=== PATIENT | female | born 1955 | race Caucasian/White ===

== ENCOUNTER → 2016-07-31 | Outpatient (CLI) | payer OTHER | END | disposition home or self-care (01) | LOC: C.LABPVFM 14:59 | PROVIDERS: ATTEND Nurse Practitioner Family | DX: R39.9 Unspecified symptoms and signs involving the genitourinary system (principal) ==

== ENCOUNTER → 2017-10-14 | Outpatient (CLI) | payer OTHER ==
[2017-10-14 13:34] LABS: HEMOGLOBIN 15.9 g/dL (12.0-16.0); MEAN CELL VOLUME 90.4 fL (80-100); MEAN CORPUSCULAR HEMOGLOBIN 30.6 pg (25-34); MEAN CORPUSCULAR HGB CONC 33.8 g/dl (32-36); MEAN PLATELET VOLUME 10.3 fL (7.4-10.4); PLATELET COUNT 185 K/uL (130-400); RED CELL DISTRIBUTION WIDTH CV 12.9 % (11.5-14.5); RED CELL DISTRIBUTION WIDTH SD 42.3 fL (36.4-46.3); WHITE BLOOD COUNT 5.96 K/uL (4.8-10.8)
[2017-10-14 14:37] LABS: ALBUMIN 3.4 gm/dl (3.4-5.0); ALT/SGPT 32 U/L (12-78); AST/SGOT 31 U/L (15-37); BLOOD UREA NITROGEN 21 mg/dl (7-18); CALCIUM 8.9 mg/dl (8.5-10.1); CARBON DIOXIDE 28 mmol/L (21-32); CHOLESTEROL 186 mg/dl (0-200); GLUCOSE 88 mg/dl (70-99); POTASSIUM 4.2 mmol/L (3.5-5.1); SODIUM 140 mmol/L (136-145)
[2017-10-14 14:39] LABS: ALKALINE PHOSPHATASE 134 U/L (45-117); LDL CHOLESTEROL CALCULATED 105 mg/dl; TOTAL PROTEIN 7.3 gm/dl (6.4-8.2)
== END | disposition home or self-care (01) ==
LOC: C.LABPVFM 08:46
PROVIDERS: ATTEND Nurse Practitioner Family
DX: E78.5 Hyperlipidemia, unspecified (principal); I10 Essential (primary) hypertension; K92.1 Melena

== ENCOUNTER → 2017-12-03 | Outpatient (CLI) | payer OTHER ==
--- NOTE | 2017-12-06 15:09 | MAMMOGRAPHY REPORT ---
BILATERAL DIGITAL SCREENING MAMMOGRAM TOMOSYNTHESIS WITH CAD: 12/03/2017 CLINICAL HISTORY: Routine screening. Patient has no complaints. TECHNIQUE: Breast tomosynthesis in addition to standard 2D mammography was performed. Current study was also evaluated with a Computer Aided Detection (CAD) system. COMPARISON: Comparison is made to exam dated: 05/27/2010 mammogram - [facility]. BREAST COMPOSITION: There are scattered areas of fibroglandular density in both breasts. FINDINGS: No suspicious masses, calcifications, or areas of architectural distortion are noted in ei ther breast. There has been no significant interval change compared to prior exams. Left breast nodu larity is again noted. IMPRESSION: ACR BI-RADS CATEGORY 2: BENIGN There is no mammographic evidence of malignancy. A 1 year screening mammogram is recommended. The pa tient will receive written notification of the results. Approximately 10% of breast cancers are not detected with mammography. A negative mammographic report should not delay biopsy if a clinically suggestive mass is present. Magalis Frederick M.D. ah/:12/03/2017 16:11:22 Shop Superintendent: Claire ALVARES(R)(M), [facility] letter sent: Normal 1/2 BI-RADS Code: ACR BI-RADS Category 2: Benign
== END | disposition home or self-care (01) ==
LOC: C.MAMM 13:36
PROVIDERS: ATTEND Nurse Practitioner Family
DX: Z12.31 Encounter for screening mammogram for malignant neoplasm of breast (principal)

== ENCOUNTER 2022-11-07 01:00 | Inpatient (IN) ==
[2022-11-07] MEDS ORDERED: ACETAMINOPHEN 500 MG TAB PO STA (01:17)
[2022-11-07] MEDS ORDERED: cefTRIAXone SODIUM 2,000 MG/70 ML BAG IV STA (01:20)
[2022-11-07] MEDS ORDERED: SODIUM CHLORIDE 0.9% 1000ML 1,000 ML IV SCH (01:30)
--- NOTE | 2022-11-07 01:39 | Emergency Department Note ---
History of Present Illness General Chief complaint: Weakness Time Seen by Provider: 11/07/22 01:10 History of Present Illness 67-year-old female presents emergency department with complaint of weakness. Patient was seen earlier in the day for weakness in the low pulse ox. Patient had an extensive work-up including a CT angio of the chest which was negative for PE. And full lab work-up. Patient returned home and states that she had increased weakness and a fever at home. Patient denies any specific complaints denies chest pain shortness of breath nausea vomiting urinary symptoms back pain diarrhea. There are no other complaints from the patient she is actually very poor historian as to her presentation. However she was here earlier was sent in for low pulse oximetry and had an extensive work-up at that time Home Medications Medication Instructions Recorded Confirmed Type calcium carbonate 600 mg-vitamin 1 cap PO QPM 12/25/18 11/07/22 History D3 5 mcg (200 unit) capsule (Calcium 600 + D(3)) cyanocobalamin (vitamin B-12) 5,000 mcg sublingual QAM 09/05/19 11/07/22 History 5,000 mcg sublingual tablet peg 400-propylene glycol (PF) 0.4 1 drp ophthalmic (eye) BID 09/27/20 11/07/22 History %-0.3 % eye drops in a dropperette (Systane (PF)) simvastatin 40 mg tablet 40 mg PO QPM #90 tabs 09/07/22 11/07/22 Rx hydrochlorothiazide 12.5 mg tablet 12.5 mg PO DAILY #30 tabs 10/30/22 11/07/22 Rx Lactobacills gasseri-Bifidobac 1 cap PO DAILY 11/07/22 11/07/22 History bifidum,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 capsule triamcinolone acetonide 0.1 % 1 applic topical DAILY PRN Skin 11/07/22 11/07/22 History topical cream Irritation Allergies Allergy/AdvReac Type Severity Reaction Status Date / Time solifenacin [From Ves[facility]are] AdvReac Intermediate UPSET Verified 11/07/22 02:07 STOMACH Sulfa (Sulfonamide AdvReac Unknown Unknown Verified 11/07/22 02:07 Antibiotics) Past Med/Surg History Medical History Fluid retention in legs History of anxiety History of depression Hyperlipemia Obesity Osteoarthritis of left knee Physical deconditioning Psoriasis Snores Surgical History H/O tooth extraction History of cataract surgery LEFT History of lumpectomy of right breast benign History of open reduction and internal fixation (ORIF) procedure LLE Family History Sister Colorectal cancer Grandmother Colorectal cancer Mother Diabetes Other No family history of adverse response to anesthesia Denies family history of Ovarian cancer Prostate cancer Myocardial infarction Breast cancer Hypertension Social History Smoking Status: Never smoker Second Hand Exposure: No (as a child); Hx Alcohol Use: No Hx Substance Use: No Preferred Language: Turkish Communication Ability: Effective Visual Impairment: Limited Hearing Ability: Normal Despatching And Receiving Clerk Required: No Beliefs That Will Affect Care: None marital status: Current Living Situation: Spouse current occupational status: retired How many Children do You have: 6 Feels Safe at Home: Yes Childhood Exposure to Second-Hand Smoke: Yes caffeine: Yes (soda ) during the past year weight has: remained stable Dental Care, Regularly: No Physical Activity Frequency: Daily Seatbelt Use: always Sunscreen Use: No Assistive Devices: Denture - Upper and Glasses Review of Systems A total of 10 systems reviewed and were otherwise negative Constitutional: + fever and + weakness Physical Exam Vital Signs Vital Signs - 24 hr 11/07/22 01:03 11/07/22 01:08 11/07/22 01:36 Temperature 39.6 C H Temperature Source Oral Pulse Rate 110 H 113 H Respiratory Rate 14 Respiratory Effort / Characteristics Non-Labored Spontaneous Respiratory Depth Normal Respiratory Pattern Regular Blood Pressure 177/100 H Blood Pressure Mean 125 Pulse Oximetry 88 L 98 Oxygen Delivery Method Room Air Nasal Cannula Oxygen Flow Rate 4 Sepsis Recent Fever Within 48 Hours Yes Sepsis New/Unexplained Change in Mental Status N/A Sepsis Action Taken by Nursing Physician Notified 11/07/22 01:42 11/07/22 02:08 11/07/22 02:30 Temperature Temperature Source Pulse Rate 113 H 118 H 105 H Respiratory Rate 24 28 H 24 Respiratory Effort / Characteristics Respiratory Depth Respiratory Pattern Blood Pressure 193/98 H 198/99 H 171/93 H Blood Pressure Mean 129 132 119 Pulse Oximetry 99 100 97 Oxygen Delivery Method Nasal Cannula Nasal Cannula Oxygen Flow Rate 4 4 Sepsis Recent Fever Within 48 Hours Sepsis New/Unexplained Change in Mental Status Sepsis Action Taken by Nursing GENERAL: Patient is awake alert in no acute distress patient is resting comfortably and showing no signs of anxiety EYES: The conjunctivae are clear. The pupils are round and reactive. EARS, NOSE, MOUTH AND THROAT: The nose is without any evidence of any deformity. Mucous membranes are moist. Tongue is midline. NECK: The neck is nontender and supple. RESPIRATORY: Normal respiratory effort is noted there is no evidence of wheezing rhonchi or rales CARDIOVASCULAR: Tachycardic rhythm noted there no murmurs rubs or gallops normal S1 normal S2. GASTROINTESTINAL: The abdomen is soft. Abdomen is nontender. BACK: No midline tenderness or or step-off noted range of motion in flexion extension as well as rotation no signs of muscle spasm noted MUSCULOSKELETAL/EXTREMITIES: There is no evidence of gross deformity full range of motion is noted in the hips and shoulders. Bilateral lower extremity edema SKIN: There is no obvious evidence of any rash. There are no petechiae, pallor or cyanosis noted. NEUROLOGIC: Patient is awake alert and oriented x3 strength is symmetric Psych normal affect Course Consultations Consultation #1: Case d/w Dr Celestin for admit Time: 02:44 Administered Medications Discontinued Medications Acetaminophen (Acetaminophen 500 Mg Tab) 1,000 mg PO NOW STA Stop: 11/07/22 01:18 Last Admin: 11/07/22 01:55 Dose: 1,000 mg Documented By: KML Sodium Chloride (Nss 1000ml) 1,000 mls @ 999 mls/hr IV .Q1H1M DERRICK Stop: 11/07/22 02:30 Last Admin: 11/07/22 01:55 Dose: 999 mls/hr Documented By: KMWard Ceftriaxone Sodium (Rocephin) 2,000 mg in 70 mls @ 140 mls/hr IV NOW STA Stop: 11/07/22 01:49 Last Admin: 11/07/22 02:01 Dose: 140 mls/hr Documented By: LEANDRO Medical Decision Making Medical Records Attestation: I reviewed the patient's medical records. Home Medications Current Medication List: was personally reviewed by me Laboratory Data Attestation: I reviewed the patient's lab results. 11/07/22 01:51 11/07/22 01:51 Lab Results 11/07/22 11/07/22 11/07/22 Range/Units 01:30 01:40 01:51 Sodium 132 L (136-145) mmol/L Potassium 4.1 (3.5-5.1) mmol/L Chloride 92 L (98-107) mmol/L Carbon Dioxide 29 (21-32) mmol/L Anion Gap 11 (3-11) BUN 26 H (6-23) mg/dl Creatinine 1.08 (0.6-1.2) mg/dl Est Cr Clr Drug Dosing 51.9 ml/min Est GFR ( Amer) 61.5 ml/min Est GFR (Non-Af Amer) 53.1 ml/min BUN/Creatinine Ratio 24.1 H (10-20) Glucose 143 H (70-99(Fasting)) mg/dl Lactate (0.4-2.0) mmol/L Calcium 9.2 (8.6-10.3) mg/dl Magnesium 1.9 (1.7-2.4) mg/dl Total Bilirubin 1.1 H (0.2-1.0) mg/dl Direct Bilirubin 0.2 (0-0.2) mg/dl AST 74 H (13-39) U/L ALT 39 (7-52) U/L Alkaline Phosphatase 101 (34-104) U/L Total Protein 7.2 (6.0-8.3) gm/dl Albumin 4.0 (3.4-5.0) gm/dl Urine Color Yellow Urine Appearance Clear (Clear) Urine pH 6.0 (4.5-7.5) Ur Specific [place] 1.020 (1.000-1.030) Urine Protein 2+ H (Negative) Urine Glucose (UA) Negative (Negative) Urine Ketones Trace H (Negative) Urine Blood 2+ H (Negative) Urine Nitrite Negative (Negative) Urine Bilirubin Negative (Negative) Urine Urobilinogen Negative (Negative) Ur Leukocyte Esterase Negative (Negative) Urine WBC (Auto) [employer] Urine RBC (Auto) [employer] U Hyaline Cast (Auto) [employer] U Epithel Cells (Auto) [employer] Urine Bacteria (Auto) [employer] SARS-CoV-2, RNA, NAAT NEGATIVE (NEGATIVE) 11/07/22 Range/Units 01:51 Sodium (136-145) mmol/L Potassium (3.5-5.1) mmol/L Chloride (98-107) mmol/L Carbon Dioxide (21-32) mmol/L Anion Gap (3-11) BUN (6-23) mg/dl Creatinine (0.6-1.2) mg/dl Est Cr Clr Drug Dosing ml/min Est GFR ( Amer) ml/min Est GFR (Non-Af Amer) ml/min BUN/Creatinine Ratio (10-20) Glucose (70-99(Fasting)) mg/dl Lactate 1.6 (0.4-2.0) mmol/L Calcium (8.6-10.3) mg/dl Magnesium (1.7-2.4) mg/dl Total Bilirubin (0.2-1.0) mg/dl Direct Bilirubin (0-0.2) mg/dl AST (13-39) U/L ALT (7-52) U/L Alkaline Phosphatase (34-104) U/L Total Protein (6.0-8.3) gm/dl Albumin (3.4-5.0) gm/dl Urine Color Urine Appearance (Clear) Urine pH (4.5-7.5) Ur Specific [place] (1.000-1.030) Urine Protein (Negative) Urine Glucose (UA) (Negative) Urine Ketones (Negative) Urine Blood (Negative) Urine Nitrite (Negative) Urine Bilirubin (Negative) Urine Urobilinogen (Negative) Ur Leukocyte Esterase (Negative) Urine WBC (Auto) Urine RBC (Auto) U Hyaline Cast (Auto) U Epithel Cells (Auto) Urine Bacteria (Auto) SARS-CoV-2, RNA, NAAT (NEGATIVE) Imaging Data Attestation: I personally reviewed and interpreted this imaging study as follows: ECG Data Attestation: I personally reviewed and interpreted this ECG as follows: Additional Comments: EKG interpreted by me sinus tachycardia rate of 114 normal intervals normal axis no obvious ST segment elevation or depression Telemetry was ordered by me, interpreted as sinus tachycardia rate of 112 MDM Narrative Medical decision making differential diagnosis includes sepsis, urinary tract infection, pneumonia, dehydration, deconditioning Plan is to check sepsis labs, give IV fluids, Tylenol, Rocephin External medical records were reviewed by me Patient's prior presentation from today was reviewed by me there may be an early urinary tract infection however it appeared to be contaminated Impression & Plan Sepsis, Weakness Discharge Plan Visit Data Chief Complaint: Weakness ED Provider: Rizwan Boyce Discharge Problem: Sepsis, Weakness Patient Disposition: Admitted As Inpatient Forms Stand Alone Forms: [facility] Prescriptions Prescriptions: No Action hydrochlorothiazide 12.5 mg tablet 12.5 mg PO DAILY Qty: 30 2RF Calcium 600 + D(3) 600 mg calcium- 200 unit capsule 1 cap PO QPM cyanocobalamin (vitamin B-12) 5,000 mcg tablet, sublingual 5,000 mcg SL QAM simvastatin 40 mg tablet 40 mg PO QPM Qty: 90 3RF Systane (PF) 0.4-0.3 % Dropperette 1 drp OPHTHALMIC (EYE) BID [employer] 1.5 billion cell Capsule 1 cap PO DAILY triamcinolone acetonide 0.1 % cream 1 applic TOP DAILY PRN (Reason: Skin Irritation) Referrals Referrals: Angelica Bartlett CRNP [Primary Care Provider] -
[2022-11-07 02:37] LABS: BUN Creatinine Ratio 24.1 (10-20); Bilirubin Direct 0.2 mg/dl (0-0.2); Bilirubin,Total 1.1 mg/dl (0.2-1.0); Calcium 9.2 mg/dl (8.6-10.3); Creatinine Clr Calc Pharmacy 51.9 ml/min; Est GFR (African American) 61.5 ml/min; Est GFR (Non-African American) 53.1 ml/min; Magnesium 1.9 mg/dl (1.7-2.4); Potassium 4.1 mmol/L (3.5-5.1); Total Protein 7.2 gm/dl (6.0-8.3)
[2022-11-07 02:44] LABS: Troponin I High Sensitivity 23.3 pg/ml (0-14)
[2022-11-07 02:57] LABS: Basophils % (auto) 0.3 %; Immature Granulocytes % (auto) 0.3 %; Lymphocytes % (auto) 12.8 %; Monocytes % (auto) 3.3 %; Neutrophils % (auto) 83.3 %
[2022-11-07 02:58] LABS: Basophils # (auto) 0.01 K/uL (0-0.2); Hematocrit (blood only) 45.8 % (37.0-47.0); Hemoglobin 16.3 g/dl (12.0-16.0); Immature Granulocytes # (auto) 0.01 K/uL (0.01-0.20); Lymphocytes # (auto) 0.46 K/uL (1.2-3.4); Mean Corpuscular Hgb Conc 35.6 g/dL (32.0-36.0); Mean Corpuscular Volume 87.2 fL (80.0-100.0); Mean Platelet Volume 11.7 fL (9.4-12.4); Monocytes # (auto) 0.12 K/uL (0.11-0.59); Platelet Count 43 K/uL (130-400); Platelet Estimate Decreased (Normal); RDW Standard Deviation 38.6 fL (36.4-46.3); Red Blood Count 5.25 M/uL (4.20-5.40)
--- NOTE | 2022-11-07 03:15 | History & Physical Report ---
Date of Service November 07, 2022 Assessment & Plan (1) Sepsis: Plan: 67-year-old female presenting with fatigue, diffuse generalized weakness, fever Tm=39.6, tachycardia, hypoxia. possible urinary source. CT performed during ER visit with no consolidation. Respiratory bio fire panel unremarkable. Patient with leukopenia WBC = 3.6 with lymphopenia lymphocytes = 0.46 as well as thrombocytopenia platelets = 43. Also with hyponatremia sodium = 132 and mild elevation of AST = 74 and T. bili = 1.1. Troponin is also mildly elevated 23.3. Elevation of procalcitonin = 1.14 which is increased from previous ER visit (0.63). Question tickborne illness given laboratory findings as above. [place] She denies any tick bites but they have dogs that frequently have ticks. - Admit to PCU Follow cultures Check anaplasmosis and babesiosis smear and DNA PCR Continue IV fluids LR at 125 mL/h x 2 L Empiric doxycycline 100 mg IV twice daily Empiric Unasyn 3 g IV every 6 Tylenol as needed Zofran as needed If no further source identified consider left knee. She has been complaining of pain in this area. There was no excess warmth, erythema or swelling during my exam. (2) Hypertension: Plan: Patient recently started on hydrochlorothiazide Will hold this medication given her hyponatremia (3) Dyslipidemia: Plan: chronic. Stable. Continue simvastatin 40 mg p.o. every afternoon F/E/NLR at 125 mL/h x 2 L, electrolytes within normal limits, regular diet as tolerated ProphylaxisSCDs, Low risk for DVT. Thrombocytopenia with platelets = 73 Codefull per discussion with patient. Family at bedside Dispositionadmit to PCU for continued work-up and treatment of sepsis History of Present Illness Chief Complaint: Weakness, fatigue, fever Primary Care Provider: GISELA Melendez Janie Cárdenas is a 67-year-old female with history of anxiety/depression, hyperlipidemia and psoriasis presenting with complaint of fever, fatigue and generalized weakness. Patient symptoms began approximately 4 days ago. Her family at bedside reports that she has been less interactive and alert than usual. She was seen in the ER on 11/06/2022 with these complaints. She was initially found to be febrile at 38.1, tachycardic 116 bpm with saturation of 93% on room air. Her temperature was checked again without administration of antipyretics was found to be normal. Patient had a chest x-ray that was unremarkable As well as a CTA-Chest and venous Doppler study that were negative for VTE or pneumonia.. She also had a chemistry panel and CBC that were within normal limits aside from thrombocytopenia with platelets of 73. Patient also had a respiratory bio fire panel and Lyme testing which were both negative. Patient was ultimately discharged home. While at home, her weakness persisted. She slid out of bed sometime during the night and was unable to get up. Her family found her on the floor and called EMS. Patient febrile upon arrival Tmax = 39.6, tachycardic 113 bpm, regular. Hypertensive 193/98. Hypoxic to 88% on room air. Supplemental oxygen was placed by nasal cannula. Presently saturating 97% on 4 L. Patient complaining of headache, fatigue and diffuse generalized weakness as well as feeling warm. Patient has had no appetite and very little oral intake over the last 2 days. She denies chest pain, cough, shortness of breath. Denies abdominal pain, nausea, vomiting, diarrhea. She does have fairly frequent constipation. She denies dysuria but does report the sensation of incomplete bladder emptying. Patient with psoriasis but denies change in her skin lesions or painful lesions. No additional complaints at this time ER course: Acetaminophen Ceftriaxone Normal saline x1 L Allergies Allergy/AdvReac Type Severity Reaction Status Date / Time solifenacin [From [facility]] AdvReac Intermediate UPSET Verified 11/07/22 02:07 STOMACH Sulfa (Sulfonamide AdvReac Unknown Unknown Verified 11/07/22 02:07 Antibiotics) Home Medications Medication Instructions Recorded Confirmed Type calcium carbonate 600 mg-vitamin 1 cap PO QPM 12/25/18 11/07/22 History D3 5 mcg (200 unit) capsule (Calcium 600 + D(3)) cyanocobalamin (vitamin B-12) 5,000 mcg sublingual QAM 09/05/19 11/07/22 History 5,000 mcg sublingual tablet peg 400-propylene glycol (PF) 0.4 1 drp ophthalmic (eye) BID 09/27/20 11/07/22 History %-0.3 % eye drops in a dropperette (Systane (PF)) simvastatin 40 mg tablet 40 mg PO QPM #90 tabs 09/07/22 11/07/22 Rx hydrochlorothiazide 12.5 mg tablet 12.5 mg PO DAILY #30 tabs 10/30/22 11/07/22 Rx Lactobacills gasseri-Bifidobac 1 cap PO DAILY 11/07/22 11/07/22 History bifidum,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 capsule triamcinolone acetonide 0.1 % 1 applic topical DAILY PRN Skin 11/07/22 11/07/22 History topical cream Irritation Past Med/Surg History Medical History Fluid retention in legs History of anxiety History of depression Hyperlipemia Obesity Osteoarthritis of left knee Physical deconditioning Psoriasis Snores Surgical History H/O tooth extraction History of cataract surgery LEFT History of lumpectomy of right breast benign History of open reduction and internal fixation (ORIF) procedure LLE Family History Sister Colorectal cancer Grandmother Colorectal cancer Mother Diabetes Other No family history of adverse response to anesthesia Denies family history of Ovarian cancer Prostate cancer Myocardial infarction Breast cancer Hypertension Social History Smoking Status: Never smoker Second Hand Exposure: No (as a child); Hx Alcohol Use: No Hx Substance Use: No Preferred Language: Portuguese Communication Ability: Effective Visual Impairment: Limited Hearing Ability: Normal Pollution Control Chemist Required: No Beliefs That Will Affect Care: None marital status: Current Living Situation: Spouse current occupational status: retired How many Children do You have: 6 Feels Safe at Home: Yes Childhood Exposure to Second-Hand Smoke: Yes caffeine: Yes (soda ) during the past year weight has: remained stable Dental Care, Regularly: No Physical Activity Frequency: Daily Seatbelt Use: always Sunscreen Use: No Assistive Devices: Denture - Upper and Glasses Review of Systems Review of Systems: All systems reviewed & are unremarkable except as noted in HPI & below Physical Exam Physical Exam: General: patient Ill in appearance, opens eyes to voice and follows commands. Answers questions appropriately Skin: Warm, dry, several psoriatic patches noted on extensor surfaces with no active bleeding or evidence of secondary infection. HEENT: NC/AT, PERRL, EOMI, anicteric sclera, conjunctiva without injection, external ear normal to inspection and nontender, nares patent, Dry mucus membranes, dentures in place, no oropharyngeal lesions, neck supple, trachea midline, no LAD, no thyromegaly, no JVD, no facial tenderness Heart: +S1/S2, regular, tachycardic, no m/r/g Lungs: equal air entry bilaterally, no rales/rhonchi/wheezes Abd: +BS, soft, NT/ND, no masses/organomegaly/ascites Ext: warm, 2+ pulses in UE/LE bilaterally, no clubbing/cyanosis or edema Neuro: nonfocal, patient AA&O x 4, speech intact, no facial droop, moving all extremities on command with equal strength 5/5 Results & Data Results & Data Vital Signs (Past 12 Hours) Vital Signs Temp Pulse Resp BP Pulse Ox O2 Del Method O2 Flow Rate 11/07/22 02:30 105 H 24 171/93 H 97 Nasal Cannula 4 11/07/22 02:08 118 H 28 H 198/99 H 100 11/07/22 01:42 113 H 24 193/98 H 99 Nasal Cannula 4 11/07/22 01:36 98 Nasal Cannula 4 11/07/22 01:08 113 H 11/07/22 01:03 39.6 C H 110 H 14 177/100 H 88 L Room Air Laboratory Results Laboratory Results WBC 3.60 K/ul (4.8-10.8) L 11/07/22 01:51 RBC 5.25 M/uL (4.20-5.40) 11/07/22 01:51 Hgb 16.3 g/dl (12.0-16.0) H 11/07/22 01:51 Hct 45.8 % (37.0-47.0) 11/07/22 01:51 MCV 87.2 fL (80.0-100.0) 11/07/22 01:51 MCH 31.0 pg (25.0-34.0) 11/07/22 01:51 MCHC 35.6 g/dL (32.0-36.0) 11/07/22 01:51 RDW Std Deviation 38.6 fL (36.4-46.3) 11/07/22 01:51 RDW Coeff of Citlali 12.0 % (11.5-14.5) 11/07/22 01:51 Plt Count 43 K/uL (130-400) L 11/07/22 01:51 MPV 11.7 fL (9.4-12.4) 11/07/22 01:51 Immature Gran % (Auto) 0.3 % 11/07/22 01:51 Neut % (Auto) 83.3 % 11/07/22 01:51 Lymph % (Auto) 12.8 % 11/07/22 01:51 [place] % (Auto) 3.3 % 11/07/22 01:51 Eos % (Auto) 0.0 % 11/07/22 01:51 Baso % (Auto) 0.3 % 11/07/22 01:51 Neut # (Auto) 3.00 K/uL (1.40-6.50) 11/07/22 01:51 Lymph # (Auto) 0.46 K/uL (1.2-3.4) L 11/07/22 01:51 [place] # (Auto) 0.12 K/uL (0.11-0.59) 11/07/22 01:51 Eos # (Auto) 0.00 K/uL (0-0.50) 11/07/22 01:51 Baso # (Auto) 0.01 K/uL (0-0.2) 11/07/22 01:51 Immature Gran # (Auto) 0.01 K/uL (0.01-0.20) 11/07/22 01:51 Platelet Estimate Decreased (Normal) L 11/07/22 01:51 Sodium 132 mmol/L (136-145) L 11/07/22 01:51 Potassium 4.1 mmol/L (3.5-5.1) 11/07/22 01:51 Chloride 92 mmol/L (98-107) L 11/07/22 01:51 Carbon Dioxide 29 mmol/L (21-32) 11/07/22 01:51 Anion Gap 11 (3-11) 11/07/22 01:51 BUN 26 mg/dl (6-23) H 11/07/22 01:51 Creatinine 1.08 mg/dl (0.6-1.2) 11/07/22 01:51 Est Cr Clr Drug Dosing 51.9 ml/min 11/07/22 01:51 Est GFR ( Amer) 61.5 ml/min 11/07/22 01:51 Est GFR (Non-Af Amer) 53.1 ml/min 11/07/22 01:51 BUN/Creatinine Ratio 24.1 (10-20) H 11/07/22 01:51 Glucose 143 mg/dl (70-99(Fasting)) H 11/07/22 01:51 Lactate 1.6 mmol/L (0.4-2.0) 11/07/22 01:51 Calcium 9.2 mg/dl (8.6-10.3) 11/07/22 01:51 Magnesium 1.9 mg/dl (1.7-2.4) 11/07/22 01:51 Total Bilirubin 1.1 mg/dl (0.2-1.0) H 11/07/22 01:51 Direct Bilirubin 0.2 mg/dl (0-0.2) 11/07/22 01:51 AST 74 U/L (13-39) H 11/07/22 01:51 ALT 39 U/L (7-52) 11/07/22 01:51 Alkaline Phosphatase 101 U/L (34-104) 11/07/22 01:51 Troponin I High Sens 23.3 pg/ml (0-14) H 11/07/22 01:51 Total Protein 7.2 gm/dl (6.0-8.3) 11/07/22 01:51 Albumin 4.0 gm/dl (3.4-5.0) 11/07/22 01:51 Procalcitonin 1.14 ng/ml (0-0.5) H 11/07/22 01:51 Urine Color Cancelled 11/07/22 01:40 Urine Color Dark Yellow 11/07/22 01:40 Urine Appearance Cancelled 11/07/22 01:40 Urine Appearance Clear (Clear) 11/07/22 01:40 Urine pH 6.0 (4.5-7.5) 11/07/22 01:40 Urine pH Cancelled 11/07/22 01:40 Ur Specific [place] 1.045 (1.000-1.030) H 11/07/22 01:40 Ur Specific [place] Cancelled 11/07/22 01:40 Urine Protein 2+ (Negative) H 11/07/22 01:40 Urine Protein Cancelled 11/07/22 01:40 Urine Glucose (UA) Cancelled 11/07/22 01:40 Urine Glucose (UA) Negative (Negative) 11/07/22 01:40 Urine Ketones Cancelled 11/07/22 01:40 Urine Ketones Trace (Negative) H 11/07/22 01:40 Urine Blood 2+ (Negative) H 11/07/22 01:40 Urine Blood Cancelled 11/07/22 01:40 Urine Nitrite Cancelled 11/07/22 01:40 Urine Nitrite Negative (Negative) 11/07/22 01:40 Urine Bilirubin Cancelled 11/07/22 01:40 Urine Bilirubin Negative (Negative) 11/07/22 01:40 Urine Urobilinogen Cancelled 11/07/22 01:40 Urine Urobilinogen Negative (Negative) 11/07/22 01:40 Ur Leukocyte Esterase Cancelled 11/07/22 01:40 Ur Leukocyte Esterase Negative (Negative) 11/07/22 01:40 Urine WBC (Auto) 1-5 /hpf (0-5) 11/07/22 01:40 Urine WBC (Auto) Cancelled 11/07/22 01:40 Urine RBC (Auto) 0-4 /hpf (0-4) 11/07/22 01:40 Urine RBC (Auto) Cancelled 11/07/22 01:40 U Hyaline Cast (Auto) 1-5 /lpf (0-5) 11/07/22 01:40 U Hyaline Cast (Auto) Cancelled 11/07/22 01:40 U Epithel Cells (Auto) 10-20 /lpf (0-5) H 11/07/22 01:40 U Epithel Cells (Auto) Cancelled 11/07/22 01:40 Urine Bacteria (Auto) Cancelled 11/07/22 01:40 Urine Bacteria (Auto) Negative (Negative) 11/07/22 01:40 Urine RBC Cancelled 11/07/22 01:40 Urine WBC Cancelled 11/07/22 01:40 Ur Epithelial Cells Cancelled 11/07/22 01:40 Ur Renal Epithelial Cell Cancelled 11/07/22 01:40 Urine Crystals Cancelled 11/07/22 01:40 Calcium Oxalate Crystal Cancelled 11/07/22 01:40 Uric Acid Crystals Cancelled 11/07/22 01:40 Triple Phos Crystals Cancelled 11/07/22 01:40 Other Crystals Cancelled 11/07/22 01:40 Amorphous Sediment Cancelled 11/07/22 01:40 Urine Bacteria Cancelled 11/07/22 01:40 Hyaline Casts Cancelled 11/07/22 01:40 Granular Casts Cancelled 11/07/22 01:40 Waxy Casts Cancelled 11/07/22 01:40 RBC Casts Cancelled 11/07/22 01:40 WBC Casts Cancelled 11/07/22 01:40 Other Casts Cancelled 11/07/22 01:40 Urine Mucus Cancelled 11/07/22 01:40 Urine Other Cancelled 11/07/22 01:40 Urine Trichomonas Cancelled 11/07/22 01:40 Urine Yeast Cancelled 11/07/22 01:40 Urine Sperm Cancelled 11/07/22 01:40 Ur Oval Fat Bodies Cancelled 11/07/22 01:40 SARS-CoV-2, RNA, NAAT NEGATIVE (NEGATIVE) 11/07/22 01:[address] ANGIOGRAM OF THE CHEST CLINICAL HISTORY: Fever and dyspnea. Hypoxia. COMPARISON STUDY: Chest x-ray dated 11/06/2022. TECHNIQUE: Following the IV administration of 120 cc of Optiray 320, CT angiogram of the chest was performed from the upper abdomen to the thoracic inlet utilizing the pulmonary embolus protocol. Images are reviewed in the axial, sagittal, and coronal planes. 3-D MIPS images are created and assessed. IV contrast was administered without complication. A dose lowering technique was utilized adhering to the principles of ALARA. The examination is degraded by motion artifact. CT DOSE: 531.64 mGy.cm FINDINGS: Thyroid: Imaged portions of the thyroid gland are normal in size and attenuation. Thoracic aorta: There is mild atherosclerotic calcification of the thoracic aorta, which is normal in caliber and demonstrates bovine variant arch anatomy. No dissection is seen. Pulmonary vasculature: The pulmonary trunk is normal in caliber. There are no filling defects identified in main, lobar, or segmental pulmonary branches to suggest pulmonary embolus. Evaluation of the peripheral branches is significantly degraded by motion artifact. Heart: The heart is enlarged and without pericardial effusion. Lungs and pleural spaces: Evaluation of the lung parenchyma is significantly degraded by motion artifact. The trachea and central airways are clear. No airspace consolidation or pleural effusion is identified. Dependent atelectasis is noted at the lung bases. Mediastinum: There is no mediastinal lymphadenopathy. Georgette: Clear. Axillae: There is no axillary lymphadenopathy. Upper abdomen: A small hiatal hernia is noted. The liver is enlarged and steatotic. Partially visualized upper abdominal viscera is otherwise grossly unremarkable. Skeletal structures: The skeletal structures are osteopenic. No lytic or blastic bony lesions are seen. IMPRESSION: 1. There is no evidence of pulmonary embolus in the main, lobar, or segmental pulmonary arteries. 2. Cardiomegaly. 3. There is no airspace consolidation or pleural effusion. 4. Hepatic steatosis. 5. Additional findings as above. ACT 112: Negative or not required by law. Electronically signed by: Kieran De Dios M.D. 11/06/2022 1:06 PM Dictated:11/06/221301 Transcribed: 11/06/221301 ======= XR chest 1V portable HISTORY: 67 years-old Female Sepsis acute sepsis COMPARISON: None TECHNIQUE: AP view of the chest FINDINGS: Cardiac silhouette is enlarged. No pneumothorax, pleural effusion, airspace consolidation or pulmonary edema. Spondylitic spurring of the spine. IMPRESSION: No acute process. ACT 112: Negative or not required by law. The above report was generated using voice recognition software. It may contain grammatical, syntax or spelling errors. Electronically signed by: Rodrigue Benavides M.D. 11/06/2022 10:42 AM Dictated:11/06/22 1041 Transcribed: 11/06/22 1041 PG Care Time/CCT Total # of Minutes Spent Total Time Spent with Patient: Total time spent is greater than 50% in coordination of care (as documented) at patient's floor/unit and/or counseling patient: Coding Level of Care Code 45469 INT INP/OBS CARE 3/75MIN Diagnoses Sepsis A41.9 Hypertension I10 Dyslipidemia E78.5
[2022-11-07 03:16] LABS: Appearance Urine Clear (Clear); Bacteria Urine Automated Negative (Negative); Bilirubin Urine Negative (Negative); Blood Urine 2+ (Negative); Color Urine Dark Yellow; Glucose Urine UA Negative (Negative); Ketones Urine Trace (Negative); Leukocyte Esterase Urine Negative (Negative); Nitrite Urine Negative (Negative); Protein Urine 2+ (Negative); RBC Urine Automated 0-4 /hpf (0-4); Specific Gravity Urine 1.045 (1.000-1.030); Urobilinogen Urine Negative (Negative)
[2022-11-07] MEDS ORDERED: DOCUSATE SODIUM 100 MG CAP PO PRN (04:24)
[2022-11-07] MEDS ORDERED: ONDANSETRON INJ 2 MG/ML 2 ML VIAL IV PRN (04:24)
[2022-11-07] MEDS: AMPICILLIN/SULBACTAM SOD 3,000 MG in 0.9 % SODIUM CHLORIDE 100 ML IV SCH ×2 (05:04→10:55)
[2022-11-07] MEDS: LACTATED RINGER'S 1,000 ML IV SCH ×2 (05:04→13:45)
[2022-11-07] MEDS: DOXYCYCLINE HYCLATE 100 MG in DEXTROSE 5% 100 ML IV SCH ×2 (05:42→16:13)
[2022-11-07 06:59] LABS: Thyroid Stimulating Hormone 0.199 uIu/ml (0.300-4.500)
[2022-11-07 07:34] LABS: T4 Free Thyroxine 0.77 ng/dl (0.61-1.60)
--- NOTE | 2022-11-07 07:41 | XRay Report ---
XR chest 1V portable HISTORY: 67 years-old Female Sepsis acute sepsis COMPARISON: CTA chest 11/06/2022 TECHNIQUE: AP view of the chest FINDINGS: Cardiac silhouette is enlarged. Moderate hemidiaphragmatic elevation. No pneumothorax, pleural effusi on, airspace consolidation or overt pulmonary edema. Degenerative changes of the shoulders and spine. IMPRESSION: Cardiomegaly without acute process. ACT 112: Negative or not required by law. The above report was generated using voice recognition software. It may contain grammatical, syntax o r spelling errors. Electronically signed by: Rodrigue Benavides M.D. 11/07/2022 7:40 AM
--- NOTE | 2022-11-07 07:43 | Hospitalist Progress Note ---
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 Anaplasmosis/Sepsis - Presentation for fatigue, generalized weakness, and fevers - unable to stand on arrival - CXR, CTA, Doppler all unremarkable * Repeat CXR indicating cardiomegaly w/o acute process - Found to be febrile, tachycardic, and hypoxic on admission - Patient found to be leukopenic and thrombocytopenic - Transaminitis, rising AST level, normal ALT and Alk Phos - Elevated Troponin (suspect demand a/w sepsis/infection): 23.3 to 31.9 to 36.1 * Continue to to trend * Currently asymptomatic * EKG with no ST or T wave changes - Procal elevated (1.14) - Blood and urine cultures pending - Thought to be possible urinary source of infection, found to be d/t tick borne illness (Anaplasmosis) * Patient notes pain in L knee, no recent injury, possible association with tick borne illness, continue to follow - Continue IVF at 125 ml/hr --- Started on empiric Doxycycline and Unasyn on admission --- Discontinue Unasyn, continue Doxycycline 100 mg BID for treatment of Anaplasmosis (anticipate 10-14 day course) Hypertension - Patient recently started on hydrochlorothiazide Held given her hyponatremia Dyslipidemia: -Chronic. Stable. Continue simvastatin 40 mg p.o. every afternoon F/E/NLR at 125 mL/h x 2 L, regular diet as tolerated Prophylaxis SCDs, Low risk, platelets = 73 CodeFull DispositionPCU Admission and Anticipated Discharge Date Admission Date: November 07, 2022 Supervising Physician Co-Signing Physician Notes I personally examined the patient and verified all constantino points of history and exam, discussed case, and agree with decision making and plan documented by Dr. Valdez. Discussed diagnosis of anaplasmosis and treatment course with patient and her family. Reviewed the importance of tick checks. Patient feeling weak and will benefit from PT evaluation and treatment. 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 4: 0800 Patient resting comfortably in bed upon arrival. She notes that she came into the hospital for fever and weakness, but that ultimately thinks she was admitted because she could not walk. She notes that shes not experiencing fevers or chills today, but that she still feels very weak. She denies any chest pain or dyspnea. She notes that she is not having any GI symptoms. Patient's diagnosis and treatment was explained to her, she expressed understanding. Family arrived at 1300, provided explanation of diagnosis and treatment and questions were answered. Daughter notes that Janie often takes naps at home, and has for many years, in the AM and PM, but that otherwise completes all ADLs and ambulates independently at baseline. Review of Systems Review of Systems: As per HPI Physical Exam Physical Exam: Gen: NAD, ill appearing, follows commands, slow to speak Skin: Warm, dry, no evidence of lesion or rash, no active bleeding HEENT: Supple, no LAD, no thyromegaly Resp:Non-labored, no wheezing/rhonchi/rales, CTAB CV:tachycardic, regular rhythm, normal S1/S2, no M/R/G Abd: Soft, non-distended, no TTP, normoactive bowels, no masses Extr: 2+ dp bilaterally, strength 4/5 bilaterally in UE/LE, no edema Neuro: AO x 4, speech intact Results & Data Results & Data Vital Signs (Past 12 Hours) Vital Signs Temp Pulse Pulse Resp BP BP Pulse Ox 11/07/22 06:03 87 11/07/22 04:52 11/07/22 04:32 36.8 C 88 15 138/85 95 11/07/22 04:21 36.8 C 15 138/85 95 11/07/22 03:30 38.8 C H 88 22 151/86 H 97 11/07/22 03:00 102 H 24 150/82 H 96 11/07/22 02:30 105 H 24 171/93 H 97 11/07/22 02:08 118 H 28 H 198/99 H 100 11/07/22 01:42 113 H 24 193/98 H 99 11/07/22 01:36 98 11/07/22 01:08 113 H 11/07/22 01:03 39.6 C H 110 H 14 177/100 H 88 L O2 Del Method O2 Flow Rate 11/07/22 06:03 11/07/22 04:52 Nasal Cannula 4 11/07/22 04:32 Nasal Cannula 4 11/07/22 04:21 Nasal Cannula 4 11/07/22 03:30 11/07/22 03:00 11/07/22 02:30 Nasal Cannula 4 11/07/22 02:08 11/07/22 01:42 Nasal Cannula 4 11/07/22 01:36 Nasal Cannula 4 11/07/22 01:08 11/07/22 01:03 Room Air Resident Activity Tracking Resident Involvement: Resident Care Provided Care Provided: Adult Hospital Medicine
--- NOTE | 2022-11-07 13:06 | Electrocardiogram Report ---
Test Reason : Blood Pressure : / mmHG Vent. Rate : 114 BPM Atrial Rate : 114 BPM P-R Int : 140 ms QRS Dur : 086 ms QT Int : 316 ms P-R-T Axes : 064 009 026 degrees QTc Int : 435 ms Sinus tachycardia Otherwise normal ECG When compared with ECG of 06-NOV-2022 09:53, No significant change was found Confirmed by Maksim Tamayo ([id number]) on 11/07/2022 1:06:25 PM Referred By: REFERRED SELF Confirmed By:Maksim Tamayo
--- NOTE | 2022-11-07 13:15 | Electrocardiogram Report ---
Test Reason : Blood Pressure : / mmHG Vent. Rate : 117 BPM Atrial Rate : 117 BPM P-R Int : 142 ms QRS Dur : 082 ms QT Int : 310 ms P-R-T Axes : 057 001 016 degrees QTc Int : 432 ms Sinus tachycardia Otherwise normal ECG When compared with ECG of 07-NOV-2022 01:04, (unconfirmed) No significant change was found Confirmed by Maksim Tamayo ([id number]) on 11/07/2022 1:15:17 PM Referred By: REFERRED SELF Confirmed By:Maksim Tamayo
[2022-11-07] MEDS: ARTIFICIAL TEARS OP PRN ×2 (16:13→20:21)
[2022-11-07] MEDS: SIMVASTATIN 40 MG TAB PO SCH (20:12)
[2022-11-08] MEDS: DOXYCYCLINE HYCLATE 100 MG in DEXTROSE 5% 100 ML IV SCH ×2 (04:26→16:46)
[2022-11-08 06:54] LABS: Hematocrit (blood only) 40.1 % (37.0-47.0); Mean Corpuscular Hemoglobin 30.7 pg (25.0-34.0); Mean Corpuscular Hgb Conc 34.9 g/dL (32.0-36.0); Mean Corpuscular Volume 87.9 fL (80.0-100.0); Platelet Count 30 K/uL (130-400); RDW Coefficient of Variation 12.5 % (11.5-14.5); RDW Standard Deviation 40.3 fL (36.4-46.3); Red Blood Count 4.56 M/uL (4.20-5.40); White Blood Count 2.38 K/ul (4.8-10.8)
[2022-11-08 06:56] LABS: BUN Creatinine Ratio 26.6 (10-20); Bilirubin Direct 0.1 mg/dl (0-0.2); Bilirubin,Total 0.7 mg/dl (0.2-1.0); Calcium 8.4 mg/dl (8.6-10.3); Creatinine Clr Calc Pharmacy 71.3 ml/min; Est GFR (African American) 89.8 ml/min; Est GFR (Non-African American) 77.5 ml/min; Platelet Estimate Decreased (Normal); Potassium 3.2 mmol/L (3.5-5.1); Total Protein 5.4 gm/dl (6.0-8.3)
[2022-11-08 07:01] LABS: INR 1.1 (0.9-1.1); Prothrombin Time 11.5 Seconds (9.0-12.0)
[2022-11-08] MEDS ORDERED: POTASSIUM CHLORIDE CRTAB 20 MEQ TABCR PO STA (07:01)
--- NOTE | 2022-11-08 07:14 | Hospitalist Progress Note ---
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 Anaplasmosis/Sepsis - Presentation for fatigue, generalized weakness, and fevers - unable to stand on arrival - CXR, CTA, Doppler all unremarkable * Repeat CXR indicating cardiomegaly w/o acute process - Found to be febrile, tachycardic, and hypoxic on admission - Patient found to be leukopenic and thrombocytopenic - Transaminitis, rising AST level, normal ALT and Alk Phos - Elevated Troponin (suspect demand a/w sepsis/infection): 23.3 to 31.9 to 36.1 * Continue to to trend * Currently asymptomatic * EKG with no ST or T wave changes - Procal elevated (1.14) - Blood and urine cultures pending - Thought to be possible urinary source of infection, found to be d/t tick borne illness (Anaplasmosis) * Patient notes pain in L knee, no recent injury, possible association with tick borne illness, continue to follow - Continue IVF at 125 ml/hr --- Continue Doxycycline (09/01), vitals wnl, hemodynamically stable, wean O2 as tolerated --- Consulted PT/OT, pending recommendations for weakness Bilateral Under-breast Rash - Suspect psoriasis vs tinea - Patient denies itching or discomfort - Patient had been told she had psoriasis there previously --- Given likelihood of tinea given location, discussed antifungal treatment with patient Hypertension - Patient recently started on hydrochlorothiazide Held given her hyponatremia Dyslipidemia: -Chronic. Stable. Continue simvastatin 40 mg p.o. every afternoon F/E/NLR at 125 mL/h x 2 L, regular diet as tolerated Prophylaxis SCDs, Low risk, platelets = 73 CodeFull DispositionPCU Admission and Anticipated Discharge Date Admission Date: November 07, 2022 Supervising Physician Co-Signing Physician Notes I personally examined the patient and verified all constantino points of history and exam, discussed case, and agree with decision making and plan documented by Dr. Valdez. Patient with much improvement on doxycycline. On exam today she was visiting with her family and was in good spirits. Discussed the importance of physical therapy evaluation for concerns of diffuse weakness. Leukocytosis and thrombocytopenia remain. Blood cultures x2 no growth at 24 and 48 hours. Hypokalemia repleted today. Vital signs are stable. 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 11/08: Janie is feeling significantly improved today. She notes that yesterday she was so fatigued it was hard for her to stay awake. Today she denies any fevers, chills, chest pain, dyspnea, abdominal pain, or bowel/bladder concerns. She notes that she had been having left knee pain, which prompted her evaluation and sent her to the ER. She also notes that she had been experiencing R Breast/Axillary discomfort during the same time frame, but that her mammogram this year was negative. She notes interest in participating in PT to regain her strength. Her questions were answered and she expressed understanding. Review of Systems Review of Systems: As per HPI Physical Exam Physical Exam: Gen: NAD, pleasant, conversive Skin: Warm, dry, no active bleeding Resp:Non-labored, no wheezing/rhonchi/rales, CTAB, on 2L NC CV: RRR, normal S1/S2, no M/R/G Breast: No superficial erythema, red/circular rash of varying diameters w/ raised borders and scaled/dry centers present under bilateral breast, no evidence of masses/lumps/lesions on palpation Abd: Soft, non-distended, no TTP, normoactive bowels, no masses Extr: 2+ dp bilaterally, strength 5/5 bilaterally in UE/LE, no edema Neuro: AO x 4, speech intact Results & Data Results & Data Vital Signs (Past 12 Hours) Vital Signs Temp Pulse Pulse Resp BP Pulse Ox O2 Del Method 11/08/22 04:16 36.8 C 65 16 128/82 98 Nasal Cannula 11/07/22 21:59 76 11/07/22 22:42 36.5 C 74 16 129/83 96 Nasal Cannula O2 Flow Rate 11/08/22 04:16 2 11/07/22 21:59 11/07/22 22:42 2 Resident Activity Tracking Resident Involvement: Resident Care Provided Care Provided: Adult Hospital Medicine
[2022-11-08] MEDS: ACETAMINOPHEN 325 MG TAB PO PRN ×2 (11:20→19:46)
[2022-11-08] MEDS ORDERED: POTASSIUM CHLORIDE CRTAB 20 MEQ TABCR PO ONE (12:00)
[2022-11-08] MEDS: CLOTRIMAZOLE 1% CR 15 GM TUBE EXT SCH (19:44)
[2022-11-08] MEDS: SIMVASTATIN 40 MG TAB PO SCH (19:44)
[2022-11-08] MEDS: ARTIFICIAL TEARS OP PRN (22:16)
[2022-11-09 06:47] LABS: Hematocrit (blood only) 42.7 % (37.0-47.0); Mean Corpuscular Hgb Conc 35.1 g/dL (32.0-36.0); Mean Corpuscular Volume 88.2 fL (80.0-100.0); Mean Platelet Volume 12.8 fL (9.4-12.4); Platelet Count 43 K/uL (130-400); RDW Coefficient of Variation 12.6 % (11.5-14.5); RDW Standard Deviation 40.8 fL (36.4-46.3); Red Blood Count 4.84 M/uL (4.20-5.40); White Blood Count 3.11 K/ul (4.8-10.8)
--- NOTE | 2022-11-09 07:00 | Hospitalist Progress Note ---
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 Anaplasmosis/Sepsis - Presentation for fatigue, generalized weakness, and fevers - unable to stand on arrival - CXR, CTA, Doppler all unremarkable * Repeat CXR indicating cardiomegaly w/o acute process - Found to be febrile, tachycardic, and hypoxic on admission - Patient found to be leukopenic and thrombocytopenic - Transaminitis, rising AST level, normal ALT and Alk Phos - Elevated Troponin (suspect demand a/w sepsis/infection): 23.3 to 31.9 to 36.1 * Continue to to trend * Currently asymptomatic * EKG with no ST or T wave changes - Procal elevated (1.14) - Blood and urine cultures pending - Thought to be possible urinary source of infection, found to be d/t tick borne illness (Anaplasmosis) * Patient notes pain in L knee, no recent injury, possible association with tick borne illness, continue to follow - Continue IVF at 125 ml/hr --- Continue Doxycycline (09/01), vitals wnl, hemodynamically stable, wean O2 as tolerated --- Consulted PT/OT, pending recommendations for weakness Bilateral Under-breast Rash - Suspect psoriasis vs tinea - Patient denies itching or discomfort - Patient had been told she had psoriasis there previously --- Given likelihood of tinea given location, discussed antifungal treatment with patient Hypertension - Patient recently started on hydrochlorothiazide Held given her hyponatremia Dyslipidemia: -Chronic. Stable. Continue simvastatin 40 mg p.o. 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 11/08: Janie is feeling significantly improved today. She notes that yesterday she was so fatigued it was hard for her to stay awake. Today she denies any fevers, chills, chest pain, dyspnea, abdominal pain, or bowel/bladder concerns. She notes that she had been having left knee pain, which prompted her evaluation and sent her to the ER. She also notes that she had been experiencing R Breast/Axillary discomfort during the same time frame, but that her mammogram this year was negative. She notes interest in participating in PT to regain her strength. Her questions were answered and she expressed understanding. 11/09: Review of Systems Review of Systems: As per HPI Physical Exam Physical Exam: Gen: NAD, pleasant, conversive Skin: Warm, dry, no active bleeding Resp:Non-labored, no wheezing/rhonchi/rales, CTAB, on 2L NC CV: RRR, normal S1/S2, no M/R/G Breast: No superficial erythema, red/circular rash of varying diameters w/ raised borders and scaled/dry centers present under bilateral breast, no evidence of masses/lumps/lesions on palpation Abd: Soft, non-distended, no TTP, normoactive bowels, no masses Extr: 2+ dp bilaterally, strength 5/5 bilaterally in UE/LE, no edema Neuro: AO x 4, speech intact Results & Data Results & Data Vital Signs (Past 12 Hours) Vital Signs Temp Pulse Pulse Resp BP Pulse Ox O2 Del Method 11/09/22 02:09 36.5 C 71 20 153/81 H 93 Room Air 11/08/22 23:00 73 11/08/22 22:50 36.7 C 72 16 123/77 95 Room Air 11/08/22 20:00 Room Air 11/08/22 19:06 36.8 C 74 18 115/75 96 Nasal Cannula O2 Flow Rate 11/09/22 02:09 11/08/22 23:00 11/08/22 22:50 11/08/22 20:00 11/08/22 19:06 2
[2022-11-09 07:01] LABS: Albumin Globulin Ratio 1.2 (0.9-2); Albumin Level 3.2 gm/dl (3.4-5.0); BUN Creatinine Ratio 27.4 (10-20); Bilirubin,Total 0.8 mg/dl (0.2-1.0); Calcium 8.7 mg/dl (8.6-10.3); Creatinine Clr Calc Pharmacy 76.4 ml/min; Est GFR (African American) 98.8 ml/min; Est GFR (Non-African American) 85.2 ml/min; Globulin 2.6 gm/dl (2.5-4.0); Potassium 3.8 mmol/L (3.5-5.1); Total Protein 5.8 gm/dl (6.0-8.3)
[2022-11-09] MEDS: CLOTRIMAZOLE 1% CR 15 GM TUBE EXT SCH (08:40)
[2022-11-09] MEDS: ACETAMINOPHEN 325 MG TAB PO PRN (08:43)
[2022-11-09] MEDS ORDERED: DOXYCYCLINE HYCLATE 100 MG CAP PO SCH (09:00)
--- NOTE | 2022-11-09 13:22 | Discharge Summary ---
Date of Service November 09, 2022 Admission HPI Per Admitting Provider Janie Cárdenas is a 67-year-old female with history of anxiety/depression, hyperlipidemia and psoriasis presenting with complaint of fever, fatigue and generalized weakness. Patient symptoms began approximately 4 days ago. Her family at bedside reports that she has been less interactive and alert than usual. She was seen in the ER on 11/06/2022 with these complaints. She was initially found to be febrile at 38.1, tachycardic 116 bpm with saturation of 93% on room air. Her temperature was checked again without administration of antipyretics was found to be normal. Patient had a chest x-ray that was unremarkable As well as a CTA-Chest and venous Doppler study that were negative for VTE or pneumonia.. She also had a chemistry panel and CBC that were within normal limits aside from thrombocytopenia with platelets of 73. Patient also had a respiratory bio fire panel and Lyme testing which were both negative. Patient was ultimately discharged home. While at home, her weakness persisted. She s lid out of bed sometime during the night and was unable to get up. Her family found her on the floor and called EMS. Patient febrile upon arrival Tmax = 39.6, tachycardic 113 bpm, regular. Hypertensive 193/98. Hypoxic to 88% on room air. Supplemental oxygen was placed by nasal cannula. Presently saturating 97% on 4 L. Patient complaining of headache, fatigue and diffuse generalized weakness as well as feeling warm. Patient has had no appetite and very little oral intake over the last 2 days. She denies chest pain, cough, shortness of breath. Denies abdominal pain, nausea, vomiting, diarrhea. She does have fairly frequent constipation. She denies dysuria but does report the sensation of incomplete bladder emptying. Patient with psoriasis but denies change in her skin lesions or painful lesions. No additional complaints at this time ER course: Acetaminophen Ceftriaxone Normal saline x1 L Admission Exam Per Admitting Provider General: patient Ill in appearance, opens eyes to voice and follows commands. Answers questions appropriately Skin: Warm, dry, several psoriatic patches noted on extensor surfaces with no active bleeding or evidence of secondary infection. HEENT: NC/AT, PERRL, EOMI, anicteric sclera, conjunctiva without injection, external ear normal to inspection and nontender, nares patent, Dry mucus membranes, dentures in place, no oropharyngeal lesions, neck supple, trachea midline, no LAD, no thyromegaly, no JVD, no facial tenderness Heart: +S1/S2, regular, tachycardic, no m/r/g Lungs: equal air entry bilaterally, no rales/rhonchi/wheezes Abd: +BS, soft, NT/ND, no masses/organomegaly/ascites Ext: warm, 2+ pulses in UE/LE bilaterally, no clubbing/cyanosis or edema Neuro: nonfocal, patient AA&O x 4, speech intact, no facial droop, moving all extremities on command with equal strength 5/5 Principal Diagnosis Sepsis/Anaplasmosis Discharge Exam Gen: NAD, pleasant, conversive Skin:Warm, dry, no active bleeding Resp:Non-labored, no wheezing/rhonchi/rales, CTAB, room air CV:RRR, normal S1/S2, no M/R/G Abd: Soft, non-distended, no TTP, normoactive bowels, no masses Extr: 2+ dp bilaterally, strength 5/5 bilaterally in UE/LE, no edema Neuro:AO x 4, speech intact Discharge Data Allergies Allergy/AdvReac Type Severity Reaction Status Date / Time solifenacin [From [facility]] AdvReac Intermediate UPSET Verified 11/07/22 02:07 STOMACH Sulfa (Sulfonamide AdvReac Unknown Unknown Verified 11/07/22 02:07 Antibiotics) Consultations 11/07/22 02:39 ED Decision to Admit Stat Hospital Course (1) Anaplasmosis: (2) Sepsis: (3) Hypertension: (4) Dyslipidemia: Mya Lima is a 67F with history of OA, DLD, HTN, psoriasis, lichen simplex, peripheral edema, sciatica, and urge incontinence who presented with fever/fatigue/weakness for 4 days and was admitted for management of sepsis, 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 Anaplasmosis/Sepsis - Presentation for fatigue, generalized weakness, and fevers - unable to stand on arrival - CXR, CTA, Doppler all unremarkable * Repeat CXR indicating cardiomegaly w/o acute process- Found to be febrile, tachycardic, and hypoxic on admission - Patient found to be leukopenic and thrombocytopenic - Transaminitis, rising AST level, normal ALT and Alk Phos - Elevated Troponin (suspect demand a/w sepsis/infection): 23.3 to 31.9 to 36.1 * Continue to to trend * Currently asymptomatic * EKG with no ST or T wave changes- Procal elevated (1.14) - Blood and urine cultures pending - Thought to be possible urinary source of infection, found to be d/t tick borne illness (Anaplasmosis) * Patient notes pain in L knee, no recent injury, possible association with tick borne illness, continue to follow- Continue IVF at 125 ml/hr --- Continue Doxycycline 100 mg PO BID for 12 more days (14 day course) --- Vitals wnl, hemodynamically stable, O2 stable on room air --- PT/OT recommending home health/PT Bilateral Under-breast Rash - Suspect psoriasis vs tinea - Patient denies itching or discomfort - Patient had been told she had psoriasis there previously --- Given likelihood of tinea given location, discussed antifungal treatment with patient Hypertension - Patient recently started on hydrochlorothiazide Held given her hyponatremia Dyslipidemia: -Chronic. Stable. Continue simvastatin 40 mg p.o. every afternoon F/E/NLR at 125 mL/h x 2 L, regular diet as tolerated Prophylaxis SCDs, Low risk, platelets = 73 CodeFull DispositionPCU Total Time Total Time Spent Total Time Spent (In Minutes): <30 Discharge Plan Discharge Items Patient Disposition: Home - Home Health Services Reason For Visit: SEPSIS Discharge Diagnosis: Anaplasmosis Activity: Per Instructions section Non-emergency contact: Primary Care Provider Call non-emergency contact if: you have any medication questions, your symptoms worsen and your rectal temperature is above 100.4 Follow-up/Referrals: Angelica Bartlett CRNP [Primary Care Provider] - 11/17/22 10:30 am (Follow up scheduled on 11/17/2022 @ 10:30) Diet: Regular Addtl Attending Provider Instructions: You were admitted to the hospital for a tick borne illness, Anaplasmosis. Upon presentation, you were found to be profoundly weak and very ill with sepsis. You were treated with antibiotics (Doxycycline) and IV fluids. Ultimately, with the fluids and antibiotics, you recovered from your state of sepsis very quickly and your vitals returned to within normal limits. When you presented, your white blood cell counts were high, platelets were low, and liver enzymes were elevated. Over the course of your stay, your white blood cell, platelet, and liver enzymes improved. In order to fully reat the tick infection, Anaplasmosis, you will need to complete a 14 day course of Doxycycline. You have received two days inpatient, I will send you home enough oral medication for another 12 days. While taking Doxycycline it is important to be aware of two of its potential side effects. Doxycycline can cause photosensitivity, which makes it very easy to contract a severe sun burn with even 15 minutes outdoors. Please exercise extra caution outdoors by using sunscreen or a protective layer of clothing. In addition, it can cause pill esophagitis, which is a reflux-like sensation which can lead to significant esophageal pain. A way to prevent this from happening is by taking a large drink of water after taking your pill or if you feel that your pill has gotten stuck in your throat, eat a piece of toast to encourage the pill to travel down to your stomach. A discharge summary will be sent to your primary care physician to ensure continuity of care. Please bring this discharge summary with you to your next office appointment so that your provider can review it at that time. Follow-up appointments: - Make a follow-up appointment with your PCP within the next week. It is very important that you follow up with them shortly after discharge from the hospital . Medications: - We sent a new medication called Doxycycline. Please take 100 mg by mouth twice daily for the next 12 days. Contact your Primary Care Provider if you experience: - Increased weakness - Fevers - Difficulty following your treatment plan or taking medications Call 911 or go to the emergency department if you experience: - Sudden, severe abdominal pain or nausea/vomiting - Severe chest pain, or chest pain that radiates (moves) to your jaw or arm - Sudden, severe shortness of breath or difficulty breathing It was a pleasure to be a part of your care, Dr. Anushka Valdez Stand-Alone Forms: My [facility] [employer], Smoking Cessation Medications and DC Order Prescriptions: New doxycycline hyclate 100 mg Capsule 100 mg PO BID 12 Days Qty: 24 0RF Continued hydrochlorothiazide 12.5 mg tablet 12.5 mg PO DAILY Qty: 30 2RF Calcium 600 + D(3) 600 mg calcium- 200 unit capsule 1 cap PO QPM cyanocobalamin (vitamin B-12) 5,000 mcg tablet, sublingual 5,000 mcg SL QAM simvastatin 40 mg tablet 40 mg PO QPM Qty: 90 3RF Systane (PF) 0.4-0.3 % Dropperette 1 drp OPHTHALMIC (EYE) BID L. gasseri-B. bifidum-B 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 Capsule 1 cap PO DAILY triamcinolone acetonide 0.1 % cream 1 applic TOP DAILY PRN (Reason: Skin Irritation) Discharge Orders: Discharge Order (Routine); Ordered 11/09/22 Ordered By: Anushka Moulton/Other Patient Handouts: Anaplasmosis Admission Data Admit Date/Time: 11/07/22 03:13 Attending Provider: Bj Barcenas Admit Provider: Gabriela Celestin Primary Care Provider: Angelica Bartlett. Other Providers: Gabriela Celestin ; [facility] Other Interventions: Discharge Summary Assessment (RN) Last Done: 11/09/22 13:44 Supervising Physician Co-Signing Physician Notes I personally examined the patient and verified all constantino points of history and exam, discussed case, and agree with decision making with Dr Valdez Feeling better, still fatigued, does relate not sleeping well in the hospital. Would very much like to go home. Discussed anaplasmosis, treatment, etc. Vitals noted, in general she is awake and alert pleasant no distress. HEENT normocephalic atraumatic mucous membranes moist. Breathing unlabored no accessory muscle use good effort. Skin shows no rashes no pallor or icterus. Neuro without focal deficits. Anaplasmosis with sepsis present on admissionnow improved, no longer septic, tolerating doxycycline, overall improving. Safe/stable for home -Finish course of doxycycline -Discussed tick checks/secondary prevention -Discussed potential for sun sensitivity and pill esophagitis with doxycycline as well as avoidance strategies -Otherwise as above Resident Activity Tracking Resident Involvement: Resident Care Provided Care Provided: Adult Hospital Medicine
--- NOTE | 2022-11-09 17:40 | Billing Data ---
Date of Service November 09, 2022 Coding Level of Care Code 40244 IN/OBS DISCH 30 MIN/LESS
[2022-11-11 23:06] LABS: Babesia microti DNA Not Detected (Not Detected)
== END 2022-11-09 14:57 | disposition home health service (06) | DRG 872 ==
LOC: ED 01:00 → 2S 03:13 → SUATTDRO 03:13 → 2S 04:03